=== PATIENT | male | born 1960 | race Caucasian/White ===

== ENCOUNTER 2023-09-24 10:17 | Emergency (ER) | payer BC, SELFPAY ==
[2023-09-24] VITALS (8 sets, daily range): BP systolic 133–167; BP diastolic 83–106
--- NOTE | 2023-09-24 11:07 | ED.GENMED ---
History of Present Illness
General
Chief Complaint: Chest Pain
Source: patient
Exam Limitations: none
Time Seen by Provider: 09/24/23 10:51
Travel History
Have you had any contact with someone who has COVID-19?: No
Do you have any symptoms of coronavirus? Fever > 100 degrees, chills, cough, shortness of breath, sore throat, loss of taste or smell, muscle aches, or headache?: No
History of Present Illness
History of Present Illness:
63-year-old male with history of hypertension hyperlipidemia and three quarters of a pack a day smoker presents with chest pain that started around 730 this morning. It was a ache in nature in the center of his chest that radiated down his arm.
This seemed to last longer than he typically does. This lasted several hours and at the time my exam he states he is finally starting to feel normal. He follows with Dr. De Anda with cardiology. He has a remote transient episode of atrial
fibrillation. He is on a full aspirin daily. No recent extended travel or surgery. No leg swelling or calf pain.
Past History
Past History
ED Past Medical History: HTN and Hypercholesterolemia
ED Past Surgical History: Appendectomy
Social History
Tobacco: Non-smoker
Living: with family
Phy Exam
Physical Exam
Physical Exam:
General: Well-appearing male no acute respiratory distress HEENT: Normocephalic atraumatic
Heart: Regular rate and rhythm no murmurs
Lungs: Subtle expiratory wheeze bilaterally
Extremities: No cyanosis or edema
Scores
Heart Score for Chest Pain Patients
STEMI patient?: No
History: Slightly or Non-Suspicious
ECG: Normal
Age: >45 - <65 years
Risk Factors: 1 or 2 Risk Factors
Troponin: </= Normal Limit
Heart Score for Chest Pain Patients: 2
Heart Score Risk: 2.5% MACE over next 6 weeks
Course
Orders/Labs/Results
Orders:
Orders
09/24/23 10:22
EKG [Electrocardiogram (*1)] Urgent
Reason for Study: Chest Pain
EKG- Treatment ONCE
09/24/23 11:04
CR Chest - 2 Views Urgent
Comment:
Reason For Exam: chest pain
09/24/23 11:31
Complete Blood Count/With Diff Urgent
Comprehensive Metabolic Panel Urgent
Troponin I Urgent
09/24/23 13:45
Troponin I Urgent
Abnormal Lab Results
09/24/23
11:31
MCH 31.7 H pg
(27.0-31.0)
Abs Immat Gran (auto) 0.1 H 10^3/uL
(0-0.05)
Absolute Neuts (auto) 7.8 H 10^3/uL
(1.4-6.5)
Absolute Monos (auto) 0.9 H 10^3/uL
(0.1-0.6)
Lymphocytes % 14.9 L %
(20.5-51.1)
Chloride 109 H mmol/L
(98-107)
Alkaline Phosphatase 139 H U/L
(38-126)
09/24/23 11:31
09/24/23 11:31
Vital Signs
Initial and Last Documented VS:
Initial Vital Signs
Temp Pulse Resp BP Pulse Ox
98 F 66 16 154/93 95
09/24/23 10:19 09/24/23 10:19 09/24/23 10:19 09/24/23 10:19 09/24/23 10:19
Last Documented Vital Signs
Temp Pulse Resp BP Pulse Ox
98 F 56 17 151/105 94
09/24/23 10:19 09/24/23 14:30 09/24/23 14:30 09/24/23 14:00 09/24/23 14:30
MDM/Problems Addressed
Differential Diagnosis Includes:
Chest pain with radiation to the arm. Consider ACS versus skill skeletal chest pain versus reflux. No history consistent with DVT or PE. EKG shows sinus rhythm with a rate of 64 no ischemic changes. Will check lab troponin and x-ray
*Critical Care Note
Total Time (30-74mins, 75-104mins- exclusive of procedures): Not Applicable
Update Note
Update Note:
Initial and repeat troponins both undetectable. Chest x-ray clear. Patient remained symptom-free. At this point no acute signs of cardiac concern. Will recommend close follow-up with cardiology.
ED Attending Note
-
Portions of this chart may have been created with voice recognition software.� Occasional wrong word or��sound alike� substitutions may have occurred due to the inherent limitations of voice recognition software.
Discharge Plan
Departure
Patient Disposition: Home (Routine Discharge)
Date of Disposition: 09/24/23
Time of Disposition: 15:04
Patient with high blood pressure during this ER visit?: No
Discharge Problem:
Chest pain
Instructions: Chest Pain DCA Follow Up
Prescriptions:
No Action
atorvastatin [Lipitor] 10 MG tablet
10 mg PO HS
telmisartan [Micardis] 80 MG tablet
80 mg PO DAILY
verapamil 240 MG tablet extended release
240 mg PO DAILY
nebivolol 10 MG tablet
10 mg PO DAILY
Referrals:
Rachel Brasher DO [Family Provider] -
Activity Restrictions/Additional Instructions:
Continue current medication regimen. Please follow-up with cardiology. Return if worse otherwise
Interventions
Interventions:
*Risk Screen - Suicide Last Done: 09/24/23 11:25
*General Assessment Last Done: 09/24/23 11:25
*Neglect/Abuse Screening Last Done: 09/24/23 11:25
ED- Fall Risk Assessment Last Done: 09/24/23 11:25
*ED COVID-19 Vaccine History Last Done: 09/24/23 11:25
ED- Cardiac Assessment Last Done: 09/24/23 11:25
[2023-09-24 11:53] LABS: % Basophils 0.8 % (0-2); % Immature Granulocytes 0.5 % (0-0.5); % Lymphocytes 14.9 % (20.5-51.1); % Monocytes 8.2 % (1.7-9.3); % Neutrophils 73.6 % (42.2-75.2); Absolute Basophils 0.1 10^3/uL (0-0.2); Absolute Eosinophils 0.2 10^3/uL (0-0.7); Absolute Immature Granulocytes 0.1 10^3/uL (0-0.05); Absolute Lymphocytes 1.6 10^3/uL (1.2-3.4); Absolute Monocytes 0.9 10^3/uL (0.1-0.6); Absolute Neutrophils 7.8 10^3/uL (1.4-6.5); Hematocrit 43.9 % (39.0-52.0); Hemoglobin 15.2 g/dL (13.0-18.0); Mean Corp Hgb Conc. 34.6 g/dL (33.0-37.0); Mean Corpuscular Hgb 31.7 pg (27.0-31.0); Mean Corpuscular Volume 91.6 fL (80.0-94.0); Mean Platelet Volume 9.2 fL (7.4-10.4); Nucleated Red Blood Cells % 0 % (-); Platelet Count 285 10^3/uL (130-400); Red Blood Cell Count 4.79 10^6/uL (4.70-6.10); Red Cell Dist. Width 13.2 % (11.5-14.5); White Blood Cell Count 10.7 10^3/uL (4.8-10.8)
[2023-09-24 12:09] LABS: ALT (SGPT) 22 U/L (0-50); AST (SGOT) 23 U/L (17-59); Albumin 4.1 g/dl (3.5-5.0); Alkaline Phosphatase 139 U/L (38-126); Blood Urea Nitrogen 16 mg/dl (9-20); Calcium 9.3 mg/dl (8.4-10.2); Carbon Dioxide 25 mmol/L (22-30); Chloride 109 mmol/L (98-107); Glucose 93 mg/dl (70-99); Potassium 4.7 mmol/L (3.5-5.1); Sodium 138 mmol/L (135-145); Total Protein 6.8 g/dl (6.3-8.2); eGFR > 60.00
[2023-09-24 12:21] LABS: Troponin I < 0.012 ng/ml
[2023-09-24 14:22] LABS: Troponin I < 0.012 ng/ml
--- NOTE | 2023-09-24 15:09 | EDRN ---
Fabricio MILLER in to see pt
== END 2023-09-24 15:16 | disposition home or self-care (01) ==
LOC: EMR 10:17
PROVIDERS: Physician Assistant; EMERGENCY PHYSICIAN Emergency Medicine; FAMILY PHYSICIAN Family Medicine
DX: R07.89 Other chest pain (principal); I10 Essential (primary) hypertension; E78.00 Pure hypercholesterolemia, unspecified; F17.210 Nicotine dependence, cigarettes, uncomplicated
CPT/HCPCS: 99285; 71046; 80053; 84484; 85025; 93005

== ENCOUNTER → 2023-09-25 08:32 | Outpatient (REF) | payer BC, SELFPAY ==
[2023-09-25 09:06] LABS: % Basophils 1.1 % (0-2); % Eosinophils 6.1 % (0-6); % Immature Granulocytes 0.4 % (0-0.5); % Monocytes 6.8 % (1.7-9.3); % Neutrophils 59.6 % (42.2-75.2); Absolute Basophils 0.1 10^3/uL (0-0.2); Absolute Eosinophils 0.6 10^3/uL (0-0.7); Absolute Lymphocytes 2.5 10^3/uL (1.2-3.4); Absolute Monocytes 0.7 10^3/uL (0.1-0.6); Absolute Neutrophils 5.7 10^3/uL (1.4-6.5); Hematocrit 45.5 % (39.0-52.0); Hemoglobin 15.7 g/dL (13.0-18.0); Mean Corp Hgb Conc. 34.5 g/dL (33.0-37.0); Mean Corpuscular Hgb 31.3 pg (27.0-31.0); Mean Corpuscular Volume 90.8 fL (80.0-94.0); Mean Platelet Volume 8.9 fL (7.4-10.4); Nucleated Red Blood Cells % 0 % (-); Platelet Count 277 10^3/uL (130-400); Red Blood Cell Count 5.01 10^6/uL (4.70-6.10); Red Cell Dist. Width 12.9 % (11.5-14.5); White Blood Cell Count 9.6 10^3/uL (4.8-10.8)
[2023-09-25 09:33] LABS: ALT (SGPT) 20 U/L (0-50); AST (SGOT) 20 U/L (17-59); Albumin 4.1 g/dl (3.5-5.0); Alkaline Phosphatase 130 U/L (38-126); Blood Urea Nitrogen 14 mg/dl (9-20); Calcium 9.6 mg/dl (8.4-10.2); Carbon Dioxide 27 mmol/L (22-30); Chloride 104 mmol/L (98-107); Glucose 115 mg/dl (70-99); HDL Cholesterol 51 mg/dl; LDL Cholesterol, Calculated 92 mg/dl; Sodium 139 mmol/L (135-145); Total Bilirubin 1.6 mg/dl (0.2-1.3); Total Cholesterol 167 mg/dl (50-199); Total Protein 6.8 g/dl (6.3-8.2); Triglyceride 121 mg/dl (10-149); Very Low Density Lipoprotein 24 mg/dl (0-30); eGFR > 60.00
[2023-09-25 09:38] LABS: Potassium 4.5 mmol/L (3.5-5.1)
[2023-09-25 09:39] LABS: Glycohemoglobin (HgbA1c) 5.6 % (4.0-5.6)
[2023-09-25 10:00] LABS: TSH Reflex To Free T4 0.43 uIU/ml (0.47-4.68)
[2023-09-25 10:29] LABS: Free T4 1.05 ng/dl (0.78-2.19)
== END ==
LOC: REG 08:32
PROVIDERS: ATTENDING PHYSICIAN Family Medicine
DX: I10 Essential (primary) hypertension (principal); E78.2 Mixed hyperlipidemia; R73.09 Other abnormal glucose; Z00.00 Encounter for general adult medical examination without abnormal findings
CPT/HCPCS: 36415; 80053; 80061; 83036; 84439; 84443; 85025

== ENCOUNTER → 2023-11-02 09:46 | Outpatient (REF) | payer BC, SELFPAY | LOC: RCS 09:46 | PROVIDERS: ATTENDING PHYSICIAN Physician Assistant Medical; FAMILY PHYSICIAN Family Medicine | DX: R07.9 Chest pain, unspecified (principal); E78.2 Mixed hyperlipidemia; Z72.0 Tobacco use | CPT/HCPCS: 93017; 93350; Q9957 ==

== ENCOUNTER → 2023-11-08 07:21 | Outpatient (REF) | payer BC, SELFPAY ==
[2023-11-08 09:14] LABS: ALT (SGPT) 18 U/L (0-50); AST (SGOT) 19 U/L (17-59); Albumin 4.2 g/dl (3.5-5.0); Alkaline Phosphatase 143 U/L (38-126); Blood Urea Nitrogen 12 mg/dl (9-20); Calcium 9.7 mg/dl (8.4-10.2); Carbon Dioxide 26 mmol/L (22-30); Chloride 106 mmol/L (98-107); GGTP 29 U/L (15-73); Glucose 116 mg/dl (70-99); Potassium 4.5 mmol/L (3.5-5.1); Sodium 139 mmol/L (135-145); Total Protein 6.8 g/dl (6.3-8.2); eGFR > 60.00
[2023-11-08 19:19] LABS: Hepatitis C Antibody Negative (Negative)
[2023-11-10 18:16] LABS: Mitochondrial M2 Ab, IgG 5.6 Units (0.0-24.9)
== END ==
LOC: REG 07:21
PROVIDERS: ATTENDING PHYSICIAN Family Medicine
DX: R74.8 Abnormal levels of other serum enzymes (principal)
CPT/HCPCS: 36415; 80053; 82977; 86381; 86803

== ENCOUNTER → 2023-11-11 16:48 | Outpatient (REF) | payer BC, SELFPAY | LOC: RAD 16:48 | PROVIDERS: ATTENDING PHYSICIAN Family Medicine | DX: R74.8 Abnormal levels of other serum enzymes (principal) | CPT/HCPCS: 76700 ==

== ENCOUNTER → 2024-02-07 08:08 | Outpatient (REF) | payer BC, SELFPAY | LOC: RST 08:08 | PROVIDERS: ATTENDING PHYSICIAN Family Medicine | DX: K22.4 Dyskinesia of esophagus (principal) | CPT/HCPCS: 74230; 92611 ==

== ENCOUNTER 2024-07-28 06:23 | Day surgery (SDC) | payer BC, SELFPAY ==
[2024-07-28 08:05] LABS: COVID-19 Antigen Negative (Negative)
== END 2024-07-28 09:32 | disposition home or self-care (01) ==
LOC: GI 06:23
PROVIDERS: ATTENDING PHYSICIAN Specialist; FAMILY PHYSICIAN Family Medicine
DX: R07.89 Other chest pain (principal); K22.2 Esophageal obstruction; K22.89 Other specified disease of esophagus; K31.89 Other diseases of stomach and duodenum; K29.50 Unspecified chronic gastritis without bleeding
CPT/HCPCS: 43239; 88305; 87811; 88342

== ENCOUNTER → 2024-11-04 09:19 | Outpatient (REF) | payer BC, SELFPAY ==
[2024-11-04 11:06] LABS: % Basophils 1.1 % (0-2); % Eosinophils 5.7 % (0-6); % Immature Granulocytes 0.2 % (0-0.5); % Monocytes 6.4 % (1.7-9.3); % Neutrophils 55.6 % (42.2-75.2); Absolute Basophils 0.1 10^3/uL (0-0.2); Absolute Eosinophils 0.5 10^3/uL (0-0.7); Absolute Lymphocytes 2.7 10^3/uL (1.2-3.4); Absolute Monocytes 0.6 10^3/uL (0.1-0.6); Absolute Neutrophils 4.8 10^3/uL (1.4-6.5); Hematocrit 43.4 % (39.0-52.0); Hemoglobin 14.8 g/dL (13.0-18.0); Mean Corp Hgb Conc. 34.1 g/dL (33.0-37.0); Mean Corpuscular Hgb 31.4 pg (27.0-31.0); Mean Corpuscular Volume 91.9 fL (80.0-94.0); Mean Platelet Volume 9.1 fL (7.4-10.4); Nucleated Red Blood Cells % 0 % (-); Platelet Count 274 10^3/uL (130-400); Red Blood Cell Count 4.72 10^6/uL (4.70-6.10); Red Cell Dist. Width 12.2 % (11.5-14.5); White Blood Cell Count 8.6 10^3/uL (4.8-10.8)
[2024-11-04 11:54] LABS: ALT (SGPT) 29 U/L (0-50); AST (SGOT) 24 U/L (17-59); Albumin 4.5 g/dl (3.5-5.0); Alkaline Phosphatase 137 U/L (38-126); Blood Urea Nitrogen 15 mg/dl (9-20); Calcium 9.5 mg/dl (8.4-10.2); Carbon Dioxide 23 mmol/L (22-30); Chloride 106 mmol/L (98-107); Glucose 117 mg/dl (70-99); HDL Cholesterol 55 mg/dl; LDL Cholesterol, Calculated 103 mg/dl; Potassium 4.3 mmol/L (3.5-5.1); Sodium 141 mmol/L (135-145); Total Bilirubin 1.2 mg/dl (0.2-1.3); Total Cholesterol 185 mg/dl (50-199); Total Protein 6.9 g/dl (6.3-8.2); Triglyceride 136 mg/dl (10-149); Very Low Density Lipoprotein 27 mg/dl (0-30); eGFR > 60.00
[2024-11-04 12:25] LABS: PSA, Total - Screen 1.16 ng/ml (0.0-4.0); TSH Reflex To Free T4 0.61 uIU/ml (0.47-4.68)
[2024-11-04 13:00] LABS: Glycohemoglobin (HgbA1c) 5.5 % (4.0-5.6)
[2024-11-06 20:25] LABS: % Free Testosterone 2.1 % (1.6-2.9); Free Testosterone 69 pg/mL (47-244); Sex Hormone Binding Globulin 25 nmol/L (19-76); Total Testosterone 331 ng/dL (300-720)
== END ==
LOC: REG 09:19
PROVIDERS: ATTENDING PHYSICIAN Family Medicine
DX: I10 Essential (primary) hypertension (principal); E78.2 Mixed hyperlipidemia; R53.82 Chronic fatigue, unspecified
CPT/HCPCS: 36415; 80053; 80061; 83036; 84270; 84402; 84403; 84443; 85025; G0103